=== PATIENT | female | born 1955 | race Caucasian/White ===

== ENCOUNTER 2016-06-12 16:54 | Emergency (ER) | payer OTHER ==
[~2016-06-12] VITALS: Ht 160 cm; Wt 78.9 kg
[2016-06-12 16:56] VITALS: Ht 160 cm; Wt 78.9 kg
[2016-06-12] MEDS ORDERED: ONDANSETRON 4 MG INJ IV STA (17:37)
[2016-06-12] MEDS ORDERED: SOD CHLORIDE 0.9% 1,000 ML IV STA ×2 (17:37→21:48)
[2016-06-12] MEDS ORDERED: morphine 4 MG/ML VIAL IV STA ×2 (18:42→19:45)
[2016-06-12 19:59] LABS: ADD UMIC YES; URINE BILIRUBIN (Dip) NEGATIVE (NEGATIVE); URINE BLOOD (Dip) 3+ (NEGATIVE); URINE COLOR LT. YELLOW (YELLOW); URINE GLUCOSE (Dip) NEGATIVE (NEGATIVE); URINE KETONES (Dip) 40 (NEGATIVE); URINE LEUKOCYTE ESTERASE (Dip) 1+ (NEGATIVE); URINE NITRITE (Dip) POSITIVE (NEGATIVE); URINE TOTAL PROTEIN (Dip) TRACE (NEGATIVE); URINE UROBILINOGEN (Dip) 0.2 E.U./dL (0.1-1.0)
[2016-06-12 20:02] LABS: BASOPHILS % 0.2 % (0.0-2.0); EOSINOPHILS % 0.1 % (0.0-7.0); HEMATOCRIT 41.7 % (37.0-47.0); LYMPHOCYTES # 1.5 10^3/ul (0.8-2.9); LYMPHOCYTES % 8.9 % (15.0-51.0); MEAN CORPUSCULAR HEMOGLOBIN 30.1 pg (29.0-33.0); MEAN CORPUSCULAR HGB CONC 33.5 g/dl (32.0-37.0); MEAN CORPUSCULAR VOLUME 89.9 fl (82.0-101.0); MEAN PLATELET VOLUME 8.5 fl (7.4-10.4); MONOCYTE # 0.3 10^3/ul (0.3-0.9); MONOCYTES % 1.8 % (0.0-11.0); NEUTROPHIL # 14.7 10^3/ul (1.6-7.5); PLATELET COUNT 290 10^3/UL (140-440); RED BLOOD COUNT 4.64 10^6/ul (4.20-5.40); UNCORRECTED WBC 16.6 10^3/ul (4.8-10.8); WHITE BLOOD COUNT 16.6 10^3/ul (4.8-10.8)
[2016-06-12 20:04] LABS: CONDITION 1
[2016-06-12 20:06] LABS: BACTERIA,URINE MANY; SQUAMOUS EPITHELIAL CELL,UR FEW
[2016-06-12 20:11] LABS: INR 0.93; PROTIME 12.5 Sec (12.2-14.2)
[2016-06-12 20:12] LABS: ALBUMIN 4.6 g/dl (3.3-4.9); PARTIAL THROMBOPLASTIN TIME 26.6 Sec (25.0-35.0); POTASSIUM 3.9 mmol/L (3.5-5.1)
[2016-06-12 20:15] LABS: ALBUMIN/GLOBULIN RATIO 1.24; BILIRUBIN,INDIRECT 0.3 mg/dl (0-1.1); BILIRUBIN,TOTAL 0.3 mg/dl (0.2-1.3); CALCIUM 9.4 mg/dl (8.4-10.2); CREATININE 0.58 mg/dl (0.44-1.00); TOTAL PROTEIN 8.3 g/dl (6.1-8.1)
[2016-06-12] MEDS ORDERED: AMLO5TAB4 PO (20:18)
[2016-06-12] MEDS ORDERED: FAMO40TA52 PO (20:19)
[2016-06-12] MEDS ORDERED: IOHEXOL 300MG/ML 150 ML BTL ONE (20:25)
[2016-06-12] MEDS ORDERED: SOD CHLORIDE 0.9% 100 ML ONE (20:25)
--- NOTE | 2016-06-12 21:13 | RADRPT ---
PROCEDURE: CT Abdomen and Pelvis with contrast. CLINICAL INDICATION: Persistent vomiting, pain, history of lap band. TECHNIQUE: A CT scan of the abdomen and pelvis was performed with intravenous contrast. The patie nt was scanned following the uncomplicated intravenous administration of 100 cc of Isovue 300. Nicole nal and sagittal reformatted images were obtained from the axial source images. Images were reviewed on a high-resolution PACS workstation. CTDIvol: 11.71 mGy. DLP: 615.52 mGy-cm. COMPARISON: None. FINDINGS: The lung bases are clear. The liver is unremarkable. The gallbladder is normal in appearance. The common bile duct is not dila aimee. The spleen is not enlarged. No pancreatic lesion is identified and there is no pancreatic ducta l dilatation. There is a 1.8 x 1.0 cm nodule in the left adrenal gland, nonspecific. The right adren al gland is unremarkable. The kidneys are normal in size. There is no perinephric fat stranding. No hydronephrosis is seen. Th ere is a 0.8 cm left renal cyst. No follow-up of this lesion is necessary There is a lap band device in place around the proximal stomach. The phi angle measures 47 degrees, within normal limits. The distal esophagus is dilated and contains a fluid level. There is a moder [id number] amount of ingested material and air in the stomach. The small bowel is normal in calib er. There is mild sigmoid colon diverticulosis. There is no bowel wall thickening. The appendix is not identified. The urinary bladder is unremarkable. The patient is status post hysterectomy. No adnexal mass is se en. No lymphadenopathy is identified. There is no ascites. No pneumoperitoneum is seen. There are no art erial calcifications. No suspicious osseous lesion is idenitified. IMPRESSION: 1. Lap band device in appropriate position around the proximal stomach. 2. Dilated distal esophagus containing a fluid level. If there is concern for lap band over tighten ing, this could be further evaluated with a fluoroscopic upper GI study. 3. Status post cholecystectomy and hysterectomy. 4. Nonspecific 1.8 cm left adrenal nodule. This could be further evaluated with adrenal protocol C T or MRI if clinically warranted. 5. Mild sigmoid colon diverticulosis. RPTAT: HTAR .Juan Pablo Navas MD, MD Date Time Electronically viewed and signed by .Juan Pablo Navas MD, MD on 06/12/2016 21:13 .R/
[2016-06-12] MEDS ORDERED: HYDR-902 PO (21:57)
[2016-06-12] MEDS ORDERED: METO10TA92 PO (21:57)
[2016-06-12 23:13] VITALS: BP 128/85; PULSE 85; RESP 14
--- NOTE | 2016-06-13 12:56 | ERD ---
ER Documentation Chief Complaint Date/Time DATE: 06/13/16 TIME: 12:49 Chief Complaint ate fish 1 hr, feels fb stuck in throat HPI 60-year-old female with a history of lap band surgery done 10 years ago presenting with epigastric abdominal pain after eating salmon. She states that she feels like her food is stuck in her esophagus. She has been having nausea associated with the pain and spitting up saliva. She has had no vomiting. The pain is pressure-like, aching, radiating into her chest. Pain is a 10 out of 10. Worse with any type of p.o. intake. Nothing seems to make it better. no associated fevers, chills, diarrhea, constipation. She has had issues like this in the past but this is worse than usual. She has not see her original surgeon, however she follows with a new surgeon, Dr. Morales. ROS All systems reviewed and are negative except as per history of present illness. Medications Home Meds Active Scripts Hydrocodone/Acetaminophen ([place] 10-325 Tablet) 1 Each Tablet, 1 TAB PO Q6H Y for PAIN, #7 TAB Prov:STEPHANIE AMAYA MD 06/12/16 Metoclopramide* (Reglan*) 10 Mg Tablet, 10 MG PO Q6 Y for NAUSEA AND/OR VOMITING , #10 TAB Prov:STEPHANIE AMAYA MD 06/12/16 Reported Medications Famotidine* (Famotidine*) 40 Mg Tablet, 40 MG PO DAILY Y for PRN, #30 TAB 06/12/16 Amlodipine Besylate* (Norvasc*) 5 Mg Tablet, 5 MG PO DAILY, TAB 06/12/16 Allergies Allergies: Coded Allergies: No Known Drug Allergies (Verified Allergy, Mild, 06/12/16) PMhx/Soc Medical and Surgical Hx: pt denies Medical Hx History of Surgery: Yes (LAP BAND) Anesthesia Reaction: No Hx Neurological Disorder: No Hx Respiratory Disorders: No Hx Cardiac Disorders: No Hx Psychiatric Problems: No Hx Miscellaneous Medical Probl: No Hx Alcohol Use: No Hx Substance Use: No Hx Tobacco Use: No Smoking Status: Never smoker FmHx Family History: No diabetes Physical Exam Vitals Vital Signs Date Time Temp Pulse Resp B/P Pulse Ox O2 Delivery O2 Flow Rate FiO2 06/12/16 23:13 85 14 128/85 99 Room Air 06/12/16 21:00 89 16 132/91 98 Room Air 06/12/16 16:56 98.1 98 18 154/74 99 Physical Exam Const: Mild distress secondary to pain, nontoxic Head: Atraumatic Eyes: Normal Conjunctiva ENT: Normal External Ears, Nose and Mouth. No stridor, no drooling Neck: Full range of motion. No meningismus. Resp: Clear to auscultation bilaterally Cardio: Regular rate and rhythm, no murmurs Abd: Soft, epigastric moderate tenderness to palpation, nondistended, no rebound or guarding. normal bowel sounds Skin: No petechiae or rashes Back: No midline or flank tenderness Ext: No cyanosis, or edema Neur: Awake and alert Psych: Normal Mood and Affect Result Diagram: 06/12/16195406/12/161954 Results 24 hrs Laboratory Tests Test 06/12/16 19:43 06/12/16 19:55 Urine Bacteria MANY Urine Bilirubin NEGATIVE Urine Clarity SLIGHTLY CLOUDY Urine Color LT. YELLOW Urine Glucose NEGATIVE% Urine Hemoglobin 3+ Urine Ketones 40 Urine Leukocyte Esterase 1+ Urine Microscopic RBC 5-10/HPF Urine Microscopic WBC 2-5/HPF Urine Nitrite POSITIVE Urine Specific [place] 1.025 Urine Squamous Epithelial Cells FEW Urine Total Protein TRACE Urine Urobilinogen 0.2 E.U./dL Urine pH 6.5 Activated Partial Thromboplast Time 26.6Sec Alanine Aminotransferase (ALT/SGPT) 51IU/L Albumin 4.6g/dl Albumin/Globulin Ratio 1.24 Alkaline Phosphatase 67IU/L Anion Gap 18 Aspartate Amino Transf (AST/SGOT) 87IU/L Basophils # 0.010^3/ul Basophils % 0.2% Blood Urea Nitrogen 14mg/dl Calcium Level 9.4mg/dl Carbon Dioxide Level 28mmol/L Chloride Level 102mmol/L Creatinine 0.58mg/dl Direct Bilirubin 0.00mg/dl Eosinophils # 0.010^3/ul Eosinophils % 0.1% Globulin 3.70g/dl Glucose Level 133mg/dl Hematocrit 41.7% Hemoglobin 14.0g/dl INR International Normalized Ratio 0.93 Indirect Bilirubin 0.3mg/dl Lipase 75U/L Lymphocytes # 1.510^3/ul Lymphocytes % 8.9% Mean Corpuscular Hemoglobin 30.1pg Mean Corpuscular Hemoglobin Concent 33.5g/dl Mean Corpuscular Volume 89.9fl Mean Platelet Volume 8.5fl Monocytes # 0.310^3/ul Monocytes % 1.8% Neutrophils # 14.710^3/ul Neutrophils % 89.0% Nucleated Red Blood Cells # 0.010^3/ul Nucleated Red Blood Cells % 0.0/100WBC Platelet Count 58096^3/UL Potassium Level 3.9mmol/L Prothrombin Time 12.5Sec Prothrombin Time Ratio 1.0 Red Blood Count 4.6410^6/ul Red Cell Distribution Width 14.0% Sodium Level 144mmol/L Total Bilirubin 0.3mg/dl Total Protein 8.3g/dl White Blood Count 16.610^3/ul Current Medications Medications (Trade) Dose Ordered Sig/Jonathan Route PRN Reason Start Time Stop Time Status Last Admin Dose Admin Sodium Chloride (NS) 1,000 ml @ 1,000 mls/hr Q1H STAT IV 06/12/16 17:37 06/12/16 18:36 DC Ondansetron HCl (Zofran Inj) 4 mg ONCE STAT IV 06/12/16 17:37 06/12/16 17:46 DC Morphine Sulfate (morphine) 4 mg ONCE STAT IV 06/12/16 18:42 06/12/16 18:43 DC 06/12/16 18:56 Morphine Sulfate (morphine) 4 mg ONCE STAT IV 06/12/16 19:45 06/12/16 19:46 DC 06/12/16 19:53 IV Flush 10 ml 10 ml STK-MED ONCE .ROUTE 06/12/16 20:25 06/12/16 20:26 DC 06/12/16 20:32 Sodium Chloride (NS) 100 ml @ ud STK-MED ONCE .ROUTE 06/12/16 20:25 06/12/16 20:26 DC 06/12/16 20:32 Iohexol 150 ml 150 ml STK-MED ONCE .ROUTE 06/12/16 20:25 06/12/16 20:26 DC 06/12/16 20:32 Sodium Chloride (NS) 1,000 ml @ 1,000 mls/hr Q1H STAT IV 06/12/16 21:48 06/12/16 22:47 DC 2/1/17 22:06 Procedures/MDM Patient is presenting with epigastric abdominal pain after eating concerning with a problem with her lap band. Her vitals are within normal limits and she is afebrile. There is no evidence of peritonitis on exam. I have a low suspicion for bowel perforation. However overtightening of her left hand versus ulceration is a possibility. She may also have distal esophageal obstruction by food versus esophageal spasms. I spoke with her surgeon, Dr. Morales, who recommended aspiration of fluid from her lap band port. However no fluid could be aspirated from the port. CT abdomen was done and showed distention of the distal esophagus, concerning for overtightening of the LAP- BAND. Her labs were notable for leukocytosis, likely stress response as I have a low suspicion for acute bacterial infection. The patient's symptoms were controlled after IV pain medications and nausea medication. I spoke with her surgeon regarding possible follow-up with him in the morning, however he is unable to see her tomorrow morning given he has multiple surgeries during the day. I spoke with our surgeon dairy nutrition specialist, Dr. Peraza, who recommended the patient follow-up with him first thing in the morning at 7 AM. I discussed the plan with the patient and her family. They feel comfortable with the plan. I recommended a clear liquid diet for now. A prescription was given for pain and nausea medication. IV fluids were given. Patient was discharged home with strict return precautions. She was hemodynamically stable upon discharge. Departure Diagnosis: Primary Impression: Abdominal pain, acute, epigastric Additional Impression: History of laparoscopic adjustable gastric banding Condition: Stable Patient Instructions: Abdominal Pain Additional Instructions: Go to see Dr. Peraza at the surgical center tomorrow at 7:00 AM. Address: [address] [place] [address]. [address] [place], [place] Return to the ER for any worsening symptoms or for uncontrollable vomiting. STEPHANIE AMAYA MD Jun 13, 2016 12:56
== END 2016-06-12 23:37 | disposition home or self-care (01) ==
LOC: FTE 16:54 → E/R 23:37
DX: R10.13 Epigastric pain (principal); Z98.84 Bariatric surgery status
CPT/HCPCS: 36415; 74177; 80053; 81001; 83690; 85025; 85610; 85730; 96374; 96376; 99285; J2270; J2405; J7030; Q9967; 81003